=== PATIENT | male | born 1945 ===

== ENCOUNTER 2022-08-03 07:42 | Outpatient (CLI) | payer MEDICARE, BC ==
[2022-08-03] MEDS ORDERED: Iopamidol 300 61% 100 ML VIAL FS ONE (09:21)
== END 2022-08-03 07:43 | disposition home or self-care (01) ==
LOC: CSHCT 07:42
PROVIDERS: ATTEND Otolaryngology
DX: K14.1 Geographic tongue (principal); J39.2 Other diseases of pharynx
CPT/HCPCS: 70491; 82565